=== PATIENT | female | born 1970 | race Caucasian/White ===

== ENCOUNTER 2017-01-07 23:11 | Emergency (ER) | payer OTHER ==
[~2017-01-07] VITALS: Ht 157.5 cm; Wt 73.9 kg
[2017-01-07 23:14] VITALS: BP_SYST 166
[2017-01-07] MEDS ORDERED: ENALAPRILAT DIHYDRATE 1.25 MG/ML VIAL IVP ONE (23:45)
[2017-01-08 01:14] VITALS: BP_SYST 123
== END 2017-01-08 01:14 | disposition home or self-care (01) ==
LOC: SED 23:11
DX: I10 Essential (primary) hypertension (principal); F41.9 Anxiety disorder, unspecified; F17.210 Nicotine dependence, cigarettes, uncomplicated; Z71.6 Tobacco abuse counseling; Z98.51 Tubal ligation status
CPT/HCPCS: 93005; 96374; 99284